=== PATIENT | female | born 1980 | race Caucasian/White ===

== ENCOUNTER 2021-12-01 20:49 | Emergency (ER) | payer BC, MEDICAID ==
[~2021-12-01] VITALS: Ht 154.9 cm; Wt 106.6 kg
[2021-12-01 21:14] VITALS: BP_SYST 134
--- NOTE | 2021-12-01 21:18 | NUR ---
PATIENT HAS HAD VOMITING, DIARRHEA X 2 DAYS WITH ABDOMINAL PAIN. RECENT TRAVEL TO [place]. NO FEVER.
[2021-12-01 21:32] LABS: BASOPHILS % (AUTO) 0.3 % (0.0-2.0); EOSINOPHILS # (AUTO) 0.1 K/uL (0.0-0.4); EOSINOPHILS % (AUTO) 1.7 % (0.0-4.0); HEMATOCRIT 40.7 % (36-48); HEMOGLOBIN 13.8 g/dL (12.0-16.0); LYMPHOCYTES # (AUTO) 0.5 K/uL (1.0-5.5); LYMPHOCYTES % (AUTO) 5.9 % (20.5-51.5); MEAN CORPUSCULAR HEMOGLOBIN 30 pg (27-31); MEAN CORPUSCULAR HGB CONC 34 % (32-36); MEAN CORPUSCULAR VOLUME 89 fL (79.0-98.0); MONOCYTES # (AUTO) 0.2 K/uL (0.0-1.0); MONOCYTES % (AUTO) 2.9 % (1.7-9.3); NEUTROPHILS # (AUTO) 7.3 K/uL (1.8-7.7); NEUTROPHILS % (AUTO) 89.2 % (40.0-70.0); PLATELET COUNT (AUTO) 321 K/uL (130-430); RED BLOOD CELL COUNT(AUTO) 4.57 MIL/uL (4.2-6.2); RED CELL DISTRIBUTION WIDTH 14.1 % (9.0-15.0); WHITE BLOOD COUNT (AUTO) 8.2 K/uL (4.8-10.8)
[2021-12-01 21:50] LABS: CALCIUM 8.1 mg/dL (8.4-11.0); CREATININE 0.97 mg/dL (0.55-1.30)
[2021-12-01 21:56] LABS: ALBUMIN 3.4 g/dL (3.4-4.8); TOTAL BILIRUBIN 0.2 mg/dL (0.0-1.0)
[2021-12-01] MEDS ORDERED: MORPHINE 4 MG INJ. 4 MG/ML VIAL IVP ONE (23:30)
[2021-12-01] MEDS ORDERED: NACL 0.9% 1,000 ML IV ONE (23:30)
[2021-12-01] MEDS ORDERED: PROCHLORPERAZINE EDISYLATE 10 MG/2 ML VIAL IVP ONE (23:30)
--- NOTE | 2021-12-01 23:56 | NUR ---
MATILDE, RN PT AMB WITH TRIAGE NURSE. C/O EPIGASTRIC PAIN WITH N/V/D NO FEVER X 2 DAYS. SO AT BEDSIDE. READY FORN ER EVAL/ EXAM
--- NOTE | 2021-12-01 23:58 | NUR ---
PT MED PER ER MD ORDERS. IV NS BOLUS INFUSING TO RIGHT HAND W/O. VSS CONTINUED MONITORING.
--- NOTE | 2021-12-02 01:00 | NUR ---
PT ENCOURAGE TO AMB TO BR FOR UA COLLECTION. PT STANDING UP WAS IMMEDIATLY DIZZY AND NAUSEAOS. HELP TO GET TO [facility]SC PT WS GAGGING, FEELING WORSE AND MORE NAUSEA. DR. FERNANDEZ MADE AWARE AND #2 LITER OF NS BOLUS GIVEN PER ER MD CHO/ JENNIFER. PT LAID BACK DOWN WITH AT BEDSIDE.
[2021-12-02] MEDS ORDERED: NACL 0.9% 1,000 ML IV ONE (01:15)
--- NOTE | 2021-12-02 02:14 | NUR ---
UA COLLECTED AT BS AND SENT TO LAB
[2021-12-02 02:39] LABS: BILIRUBIN,URINE NEGATIVE (NEGATIVE); CLARITY/URINE CLEAR (CLEAR); COLOR,URINE YELLOW (YELLOW); GLUCOSE,URINE NEGATIVE (NEGATIVE); KETONES,URINE TRACE (NEGATIVE); LEUKOCYTE ESTERASE ,URINE NEGATIVE (NEGATIVE); NITRITE, URINE NEGATIVE (NEGATIVE); PROTEIN URINE NEGATIVE (NEGATIVE); UROBILINOGEN,URINE 0.2 (0.2-1.0)
[2021-12-02 02:43] LABS: BLOOD, URINE TRACE (NEGATIVE)
--- NOTE | 2021-12-02 03:26 | NUR ---
UP AMB TO BR FOR STOOL SAMPLE COLLECTION, WITH SLOW, STEADY GAIT. NO N/V OR DIZZINESS.
[2021-12-02 03:44] LABS: WBC,URINE 0-3 /HPF (0-3)
[2021-12-02 03:45] LABS: BACTERIA,URINE None Seen /HPF (None Seen); MUCUS,URINE None Seen /LPF (None Seen)
[2021-12-02] MEDS ORDERED: LOPE2CAP PO (03:45)
[2021-12-02] MEDS ORDERED: HYOS-26 PO (03:45)
[2021-12-02] MEDS ORDERED: PHE25 PO (03:45)
[2021-12-02] MEDS ORDERED: ONDANSETRON 4 MG ODT TAB ONE (03:57)
[2021-12-02] MEDS ORDERED: ONDANSETRON 4 MG ODT TAB PO ONE (04:00)
[2021-12-02 04:03] VITALS: BP_SYST 115
--- NOTE | 2021-12-02 04:06 | NUR ---
Patient given written and verbal discharge instructions and verbalizes understanding. ER MD discussed with patient the results and treatment provided. Patient in stable condition. ID arm band removed. IV catheter removed intact and dressing applied, no active bleeding. Rx of N/A given. Patient educated on pain management and to follow up with PMD. Pain Scale . Opportunity for questions provided and answered. Medication side effect fact sheet provided.
== END 2021-12-02 04:03 | disposition home or self-care (01) ==
LOC: SED 20:49
DX: K52.9 Noninfective gastroenteritis and colitis, unspecified (principal); R10.13 Epigastric pain; R11.2 Nausea with vomiting, unspecified; R42 Dizziness and giddiness; Z79.899 Other long term (current) drug therapy; Z20.822 Contact with and (suspected) exposure to COVID-19
CPT/HCPCS: 99285; 96374; 96361 ×2; 96375; 87426; 80053; 81000; 83690; 85025; 36415; 87804 ×2; J0780; J2270; J7030 ×2; Q0162